=== PATIENT | female | born 1965 | race Hispanic/Latino ===

== ENCOUNTER 2019-11-11 15:29 | Inpatient (IN) | payer OTHER ==
[~2019-11-11] VITALS: Ht 149.9 cm; Wt 65.8 kg
[~2019-11-11 15:29] MED LIST: MECLIZINE HCL12.5 MG PO; MONTELUKAST SOD10 MG PO; PROAIR HFA INH8.5 GM INH; QVAR7.3 G1 INH
--- OUTSIDE RECORDS SUMMARY | 2019-11-11 15:32 | XMS REPORT ---
Author Author [facility] Organization [facility] Address [address] [place] [address] Phone Unavailable Care Team Providers Care Cell Plasterer Name Role Phone Unavailable Unavailable Payers Payer Name Policy Type Policy Number Effective Date Expiration Date S ource Problems This patient has no known problems. Allergies, Adverse Reactions, Alerts Allergy Name Allergy Type Status Severity Reaction(s) Onset Date Inacti ve Date Treating Clinician Comments Source amoxicillin DA Active SV 2017-04-09 00:00:00 [facility] FLU SHOT DA Active SV 2017-04-09 00:00:00 [facility] Medications This patient has no known medications. Procedures This patient has no known procedures. Results Test Description Test Time Test Comments Results Result Comments Source - XR WRIST 3 + V RT 2019-10-28 14:42:00 FAX: Maritza Evangelista [phone] [place]: St: [facility] FAX: Emily Vasques DENTAL HYGIENIST Name: CRYSTAL LUKE [employer] : 1965 Age/S: 54/F [address] Unit #: [id number] Loc: [place] [address] Phys: Emily Vasques DENTAL HYGIENIST Acct: [id number] Dis Date: Status: REG ER PHONE #: [phone] Exam Date: 10/28/2019 1410 FAX #: [phone] Reason: PAIN/SWELLING AFTER FALL EXAMS: CPT CODE: [id number] XR WRIST 3 + V RT [id number] EXAM: Right wrist, 3 views; INFORMATION: Painful swelling after fall; FINDINGS: The lateral view shows a bone fragment or an abnormal calcification along the dorsal aspect of the distal portion of the right radius. The AP and oblique views show no obvious fracture. No radiopaque foreign bodies. IMPRESSION: Possible fracture involving the dorsal aspect of the distal right radius, seen on the lateral view only. Alternatively, this could represent a soft tissue calcification. Recommend clinical correlation and consideration for a CT scan of the wrist, if indicated. Location code: GW at 1442 Reported and signed by: Philip Yuan M.D. CC: Maritza Diaz MD; Emily Vasques NP Technologist: DAVID SURESH(R) Trnscrd Date/Time/By: 10/28/2019 (4177) : By: ChepeGRW Orig Print D/T: S: 10/28/2019 (7299) PAGE 1 Signed Report
[2019-11-11] MEDS ORDERED: SODIUM CHLORIDE 0.9% 1000ML 1,000 ML IV STA (15:34)
--- NOTE | 2019-11-11 15:55 | Emergency Department Note ---
History of Present Illnes History of Present Illness Chief Complaint: COVID PUI History of Present Illness This is a 54 year old female . c/o chills cough x 10 days - 6 days ago developed diarrhea lasted 5 days - developed sob chest wall pain several days worse today Onset (how long ago): day(s) (10days) Location: chest Quality: mod Radiation: non-radiation, back, neck, extremity, abdomen, periumbilical, flank, proximal, distal, other Severity: moderate Onset quality: gradual Duration (how long): day(s) (10days) Timing of current episode: constant Progression: worsening Context: recent illness (chills cough x 1 dyas) Relieving factors: none Exacerbating factors: none Treatments prior to arrival: none (KB PRIEST NP) Past Medical/Family History Physician Review I have reviewed the patient's past medical and family history. Any updates have been documented here. (KB PRIEST NP) Social History Smoking Cessation: Former smoker Alcohol Use: None Any Illegal Drug Use: No TB Exposure/Symptoms: No Physically hurt or threatened: No (KB PRIEST NP) Family History Family history of heart diseas: No (KB PRIEST NP) Other Last Tetanus: Unknown Any Pre-Existing Lines (PICC,: No (KB PRIEST NP) Review of Systems Review of Systems Constitutional: chills, fever EENTM: no symptoms Cardiovascular: no symptoms Respiratory: cough, pain with cough, dyspnea, dyspnea on exertion Gastrointestinal: no symptoms Genitourinary: no symptoms Musculoskeletal: no symptoms Neurological: no symptoms Psychological: no symptoms Endocrine: no symptoms Hematological/Lymphatic: no symptoms Review of other systems All other systems reviewed and negative. (KB PRIEST NP) Physical Exam Related Data Allergies: Coded Allergies: amoxicillin (Verified Allergy, Intermediate, Vomiting, Dizziness, Stomach Pain, 06/20/15) Physical Exam CONSTITUTIONAL Constitutional: ill appearing HENT HENT: normocephalic, atraumatic, oropharynx clear/moist, nose normal, erythema (mnimal ) HENT L/R: left ext ear normal, right ext ear normal EYES Eyes: PERRL, conjunctivae normal NECK Neck: ROM normal PULMONARY Pulmonary: respiratory distress, chest tenderness, other (tachypnea grunting ); breath sounds normal (lower lung fileds diminished) CARDIOVASCULAR Cardiovascular: regular rhythm, heart sounds normal, capillary refill normal, tachycardia GASTROINTESTINAL Abdominal: soft, nontender, bowel sounds normal GENITOURINARY Genitourinary: exam deferred SKIN Skin: warm, dry MUSCULOSKELETAL Musculoskeletal: ROM normal NEUROLOGICAL Neurological: alert, oriented x 3, no gross motor or sensory deficits PSYCHOLOGICAL Psychological: mood/affect normal, judgement normal (KB PRIEST NP) Results Laboratory Laboratory Laboratory Tests Test 11/11/19 15:40 White Blood Count 9.37 x10e3/uL (4.8-10.8) Red Blood Count 5.19 x10e6/uL (3.6-5.1) Hemoglobin 15.2 g/dL (12.0-16.0) Hematocrit 44.0 % (34.2-44.1) Mean Corpuscular Volume 84.8 fL (81-99) Mean Corpuscular Hemoglobin 29.3 pg (28-32) Mean Corpuscular Hemoglobin Concent 34.5 g/dL (31-35) Red Cell Distribution Width 12.0 % (11.7-14.4) Platelet Count 304 x10e3/uL (140-360) Neutrophils (%) (Auto) 74.1 % (38.7-80.0) Lymphocytes (%) (Auto) 18.9 % (18.0-39.1) Monocytes (%) (Auto) 6.2 % (4.4-11.3) Eosinophils (%) (Auto) 0.1 % (0.0-6.0) Basophils (%) (Auto) 0.2 % (0.0-1.0) Neutrophils # (Auto) 6.9 (2.1-6.9) Lymphocytes # (Auto) 1.8 (1.0-3.2) Monocytes # (Auto) 0.6 (0.2-0.8) Eosinophils # (Auto) 0.0 (0.0-0.4) Basophils # (Auto) 0.0 (0.0-0.1) Absolute Immature Granulocyte (auto 0.05 x10e3/uL (0-0.1) Prothrombin Time 13.0 seconds (11.9-14.5) Prothromb Time International Ratio 0.93 Activated Partial Thromboplast Time 30.1 seconds (23.8-35.5) Sodium Level 135 mmol/L (136-145) Potassium Level 3.1 mmol/L (3.5-5.1) Chloride Level 94 mmol/L (98-107) Carbon Dioxide Level 20 mmol/L (22-29) Anion Gap 24.1 mmol/L (8-16) Blood Urea Nitrogen 9 mg/dL (7-26) Creatinine 0.66 mg/dL (0.57-1.11) Estimat Glomerular Filtration Rate > 60 ML/MIN (60-) BUN/Creatinine Ratio 14 (6-25) Glucose Level 91 mg/dL (74-118) Lactic Acid Level 2.7 mmol/L (0.5-2.0) Calcium Level 9.7 mg/dL (8.4-10.2) Total Bilirubin 0.8 mg/dL (0.2-1.2) Aspartate Amino Transf (AST/SGOT) 46 IU/L (5-34) Alanine Aminotransferase (ALT/SGPT) 42 IU/L (0-55) Alkaline Phosphatase 69 IU/L (40-150) Creatine Kinase 84 IU/L (29-168) Creatine Kinase MB 1.00 ng/mL (0-5.0) Troponin I 0.006 ng/mL (0-0.300) B-Type Natriuretic Peptide < 10.0 pg/mL (0-100) Total Protein 8.2 g/dL (6.5-8.1) Albumin 3.5 g/dL (3.5-5.0) Globulin 4.7 g/dL (2.3-3.5) Albumin/Globulin Ratio 0.7 (0.8-2.0) Thyroid Stimulating Hormone (TSH) 2.029 uIU/mL (0.350-4.940) Lab results reviewed: Yes (KB PRIEST FRONT OFFICE HELP) Critical Care Time Subsequent provider I assumed direction of critical care for this patient from another provider of my specialty. (KB PRIEST FRONT OFFICE HELP) Assessment & Plan Reassessment Reassessment time: 15:50 Reassessment chart scribed for Dr Santana 54y f presented to ed c/o chills cough fever x 10 days - 6 days ago developed diarrhea lasted 5 days - developed sob chest wall pain several days worse today - Dr Santana in eval pt status - pt c/o cwp tachypneic grunting w/ pain sts hurts to breath - lab cxr blood culture lactic ordered pt medicated w/ ns bolus zofran morphine azithromax rocephin tylenol suspect sepsis - blood cultures lactic ordered & azithromax / rocephin 1545 source resp meet sirs criteria - vs- temp 101 hr 124 1540 severs sepsis -1st lactic -2.7 (KB PRIEST FRONT OFFICE HELP) Assessment & Plan Assessment & Plan Dr Santana spoke w/ pt and explained plan of care to admit Dr Santana spoke w/ Dr Real will admit (KB PRIEST FRONT OFFICE HELP) Final Impression: (1) ACUTE RESPIRATORY DISTRESS (2) VIRAL PNEUMONIA, UNSPECIFIED (3) Pneumonia (VANESSA SANTANA MD) Depart Disposition: ADMITTED Home Meds Reported Medications Albuterol Sulf* (PROAIR HFA INHALER*) 8.5 Gm Inh, 8.5 G INH 06/20/15 Beclomethasone Dipropionate (QVAR) 7.3 Gm Aer.w.adap, 80 MCG INH 06/20/15 Meclizine Hcl (MECLIZINE HCL) 12.5 Mg Tablet, 25 MG PO DAILY, TAB 06/20/15 Montelukast Sodium (MONTELUKAST SODIUM) 10 Mg Tablet, 10 MG PO DAILY, #30 TAB 06/20/15 Medications in the ED Sodium Chloride 1,000 ml @ 0 mls/hr Q0M STAT IV ; Start 11/11/19 at 15:34; Stop 11/11/19 at 15:37; Status DC Ceftriaxone Sodium 50 ml @ 50 mls/hr ONCE STAT IV ; Start 11/11/19 at 15:34; Stop 11/11/19 at 16:33; Status UNV Azithromycin 250 ml @ 125 mls/hr ONCE STAT IV ; Start 11/11/19 at 15:34; Stop 11/11/19 at 17:33; Status UNV (KB PRIEST NP) Physician Attestation Provider Attestation The patient's history, exam findings, diagnostics, and a summary of any interventions or procedures was reviewed in detail with our ABHIJIT. I personally interviewed and examined the patient, and I have reviewed and agree with the HPI andexam. 10 DAYS OF F/C, COUGH, ACHING, then 6 days ago had diarrhea lasting 4 days, SOB started last night worse today. My personal exam shows O2 sat 91% on RA with mild resp distress, L- decr BS's with scattered basilar rhonchi. I confirm the diagnosis as documented by the ABHIJIT. I have reviewed and agree with the care plan articulated in the disposition section. (VANESSA SANTANA MD) KB PRIEST NP November 11, 2019 15:55 VANESSA SANTANA MD November 11, 2019 18:05
[2019-11-11] MEDS ORDERED: CEFTRIAXONE SOD 1 GM/NS 50 ML 50 ML IV ONE (16:00)
[2019-11-11] MEDS ORDERED: ONDANSETRON HCL INJ 2MG/ML 2ML 2 MG/ML VIAL IV NR (16:00)
[2019-11-11 16:09] LABS: BASOPHILS % 0.2 % (0.0-1.0); EOSINOPHILS % 0.1 % (0.0-6.0); HEMOGLOBIN 15.2 g/dL (12.0-16.0); LYMPHOCYTES # (AUTO) 1.8 (1.0-3.2); LYMPHOCYTES % 18.9 % (18.0-39.1); MEAN CORPUSCULAR HEMOGLOBIN 29.3 pg (28-32); MEAN CORPUSCULAR HGB CONC 34.5 g/dL (31-35); MEAN CORPUSCULAR VOLUME 84.8 fL (81-99); MONOCYTES # (AUTO) 0.6 (0.2-0.8); MONOCYTES % 6.2 % (4.4-11.3); NEUTROPHILS # (AUTO) 6.9 (2.1-6.9); NEUTROPHILS % 74.1 % (38.7-80.0); PLATELET COUNT 304 x10e3/uL (140-360); RED BLOOD COUNT 5.19 x10e6/uL (3.6-5.1)
[2019-11-11 16:22] LABS: INR 0.93
[2019-11-11 16:23] LABS: PARTIAL THROMBOPLASTIN TIME 30.1 seconds (23.8-35.5)
[2019-11-11] MEDS ORDERED: SODIUM CHLORIDE 0.9% 1000ML 1,000 ML IV SCH (16:30)
[2019-11-11] MEDS ORDERED: MORPHINE SULFATE 2 MG/ML SYR 1ML IV ONE (16:30)
--- NOTE | 2019-11-11 16:31 | NUR ---
panda here to see pt
[2019-11-11 16:32] LABS: ALANINE AMINOTRANSFERASE 42 IU/L (0-55); ALBUMIN 3.5 g/dL (3.5-5.0); ALBUMIN/GLOBULIN RATIO 0.7 (0.8-2.0); ALKALINE PHOSPHATASE 69 IU/L (40-150); ANION GAP 24.1 mmol/L (8-16); BLOOD UREA NITROGEN 9 mg/dL (7-26); BUN/CREATININE RATIO 14 (6-25); CALCIUM 9.7 mg/dL (8.4-10.2); CARBON DIOXIDE 20 mmol/L (22-29); CHLORIDE 94 mmol/L (98-107); CREATINE KINASE 84 IU/L (29-168); CREATININE, SERUM 0.66 mg/dL (0.57-1.11); EST GLOMERULAR FILTRATION RATE > 60 ML/MIN (60-); GLUCOSE 91 mg/dL (74-118); POTASSIUM 3.1 mmol/L (3.5-5.1); SODIUM 135 mmol/L (136-145)
[2019-11-11] MEDS ORDERED: ACETAMINOPHEN 325 MG TAB PO ONE (16:45)
[2019-11-11] MEDS ORDERED: CEFTRIAXONE SOD 1 GM VIAL ONE (16:46)
[2019-11-11 16:51] LABS: THYROID STIMULATING HORMONE 2.029 uIU/mL (0.350-4.940)
--- NOTE | 2019-11-11 16:54 | NUR ---
covid swab sent and meds given.
[2019-11-11] MEDS ORDERED: AZITHROMYCIN 500MG/NS 250 ML 250 ML IV ONE (17:00)
[2019-11-11] MEDS ORDERED: ALBUTEROL SULFATE HFA 8GM INHALATION AEROSOL INH PRN (17:00)
[2019-11-11 17:08] LABS: B-TYPE NATRIURETIC PEPTIDE2 < 10.0 pg/mL (0-100)
[2019-11-11] MEDS ORDERED: HYDROMORPHONE 1MG/1ML INJ IV STA (17:27)
[2019-11-11] MEDS ORDERED: LEVOFLOXACIN 500MG/D5W 100ML 100 ML IV SCH (17:30)
[2019-11-11 17:54] LABS: CLARITY,URINE SL CLOUDY (CLEAR); COLOR,URINE YELLOW (YELLOW); LEUKOCYTE ESTERASE ,URINE NEGATIVE (NEGATIVE); NITRITE,URINE NEGATIVE (NEGATIVE); PROTEIN,URINE DIPSTICK 2+ (NEGATIVE)
[2019-11-11 17:55] LABS: BILIRUBIN,URINE SMALL (NEGATIVE); KETONES,URINE >=160 (NEGATIVE); URINE UROBILINOGEN 0.2 mg/dL (0.2 - 1)
[2019-11-11] MEDS ORDERED: HYDROMORPHONE 1MG/1ML INJ IV NR (18:00)
[2019-11-11 18:10] LABS: BACTERIA,URINE RARE /HPF; EPITHELIAL CELLS,URINE FEW /LPF
--- OUTSIDE RECORDS SUMMARY | 2019-11-11 18:21 | XMS REPORT ---
Author Author [facility] Organization [facility] Address [address] [place] [address] Phone Unavailable Care Team Providers Care Loop Tacker Name Role Phone Unavailable Unavailable Payers Payer Name Policy Type Policy Number Effective Date Expiration Date S ource Problems This patient has no known problems. Allergies, Adverse Reactions, Alerts Allergy Name Allergy Type Status Severity Reaction(s) Onset Date Inacti ve Date Treating Clinician Comments Source amoxicillin DA Active SV 2017-04-09 00:00:00 [facility] FLU SHOT DA Active SV 2017-04-09 00:00:00 [facility] Medications This patient has no known medications. Procedures This patient has no known procedures. Results Test Description Test Time Test Comments Results Result Comments Source - XR WRIST 3 + V RT 2019-10-28 14:42:00 FAX: Maritza Evangelista [phone] [place]: St: [facility] FAX: Emily Vasquse [address] MAN Name: CRYSTAL LUKE [facility] : 1965 Age/S: 54/F [address] Unit #: [id number] Loc: [place] [address] Phys: Emily Vasques [address] Acct: [id number] Dis Date: Status: REG ER PHONE #: [phone] Exam Date: 10/28/2019 1410 FAX #: [phone] Reason: PAIN/SWELLING AFTER FALL EXAMS: CPT CODE: [id number] XR WRIST 3 + V RT [id number] EXAM: Right wrist, 3 views; INFORMATION: Painful [...] NP Technologist: DAVID SURESH(R) Trnscrd Date/Time/By: 10/28/2019 (2511) : By: ChepeGRW Orig Print D/T: S: 10/28/2019 (9393) PAGE 1 Signed Report
--- NOTE | 2019-11-11 18:25 | Diagnostic Imaging Report ---
EXAMINATION: CHEST SINGLE (PORTABLE) INDICATION: Shortness of breath. COMPARISON: None FINDINGS: TUBES and LINES: None. LUNGS: Lungs are well inflated. There are patchy consolidative opacities in the lower lung zones bilaterally. Mild interstitial opacities. PLEURA: No pleural effusion or pneumothorax. HEART AND MEDIASTINUM: The cardiomediastinal silhouette is unremarkable. BONES AND SOFT TISSUES: No acute osseous lesion. Soft tissues are unremarkable. UPPER ABDOMEN: No free air under the diaphragm. IMPRESSION: Bilateral interstitial and lower lung zone airspace opacities may represent multifocal pneumonia (including atypical pneumonia), possibly with superimposed pulmonary edema. Recommend follow-up chest radiograph to assess for resolution in 6-8 weeks. Signed by: Dr. Brown Li MD on 11/11/2019 6:22 PM
[2019-11-11] MEDS: ALBUTEROL SULFATE HFA 8GM INHALATION AEROSOL INH PRN (18:46)
[2019-11-11] MEDS: LORAZEPAM 0.5 MG TAB PO PRN (18:48)
--- NOTE | 2019-11-11 19:25 | NUR ---
2ND LATIC DRAWN PER ORDER.
[2019-11-11] MEDS ORDERED: POTASSIUM CHLORIDE 20 MEQ TAB CR PO NR (19:30)
--- NOTE | 2019-11-11 19:31 | Consultation ---
DATE OF CONSULTATION: Pulmonary Critical Care Consultation CHIEF COMPLAINT: Fevers and cough. HISTORY OF PRESENT ILLNESS: The patient is a 54-year-old woman. She has a history of some asthma and uses an albuterol inhaler intermittently. She reports fever and cough for the last 10 days. Her cough has been productive of some discolored phlegm. She reports body aches as well. She denies any nausea or vomiting. PAST SURGICAL HISTORY: Status post appendectomy. PAST MEDICAL HISTORY: 1. History of asthma. 2. No prior cardiac history. SOCIAL HISTORY: The patient quit smoking 15 years ago. She is not an active drinker. ALLERGIES: THE PATIENT IS ALLERGIC TO AMOXICILLIN. REVIEW OF SYSTEMS: The patient is afebrile now, but had a fever at home. She does not complain of headache. She has no neck pain. She is not having any chest pain. She does have cough and phlegm production. She has some dyspnea. She does not complain of wheezing. She has no abdominal pain. She has no nausea or vomiting. She has no leg edema. PHYSICAL EXAMINATION: VITAL SIGNS: The patient is afebrile. The blood pressure is 101/66 and saturation is 99% on a non-rebreather. Her pulse is 104 and respiratory rate is elevated to 34. HEENT: Shows no facial swelling or erythema. LYMPHATIC: Shows no submandibular, cervical, or supraclavicular adenopathy. CARDIAC: Reveals regular rate and rhythm with normal S1 and S2. LUNGS: Auscultation of lungs reveals clear breath sounds bilaterally. There is no wheezing. ABDOMEN: Soft and nontender. There is no rebound or guarding. EXTREMITIES: Shows no leg edema or calf tenderness. There is no cyanosis or clubbing. SKIN: Shows no rashes. NEUROLOGICAL: Shows no focal abnormalities. LABORATORY DATA: The BUN to creatinine ratio is 9 to 0.66 and the potassium is 3.1. The lactic acid is 2.7. Albumin is 3.4. White blood cell count is 9.3 and the hemoglobin is 15.2. The platelet count is 304. IMPRESSION: 1. Community-acquired pneumonia with sepsis, present on admission. 2. Possible COVID-19 infection. 3. Asthma. 4. Anion gap metabolic acidosis. PLAN: 1. The patient will receive IV fluids. 2. Panculture. 3. Antibiotics for community-acquired pneumonia. 4. Urinalysis. 5. Monitor lactic acid. 6. Await COVID-19 testing. 7. Bronchodilators. MD ILIR Mari/GENEVA /[id number]
--- NOTE | 2019-11-11 19:54 | NUR ---
GREEN SEPSIS SHEET ON CHART PER PROTOCOL
[2019-11-11] MEDS: MORPHINE SULFATE 2 MG/ML SYR 1ML IV PRN (23:05)
[2019-11-12] VITALS (11 sets, daily range): BP systolic 97–118; BP diastolic 63–75
[2019-11-12 00:23] LABS: BASOPHILS % 0.2 % (0.0-1.0); EOSINOPHILS % 0.2 % (0.0-6.0); HEMATOCRIT 34.1 % (34.2-44.1); HEMOGLOBIN 11.7 g/dL (12.0-16.0); LYMPHOCYTES # (AUTO) 1.1 (1.0-3.2); LYMPHOCYTES % 16.9 % (18.0-39.1); MEAN CORPUSCULAR HEMOGLOBIN 29.4 pg (28-32); MEAN CORPUSCULAR HGB CONC 34.3 g/dL (31-35); MEAN CORPUSCULAR VOLUME 85.7 fL (81-99); MONOCYTES # (AUTO) 0.5 (0.2-0.8); MONOCYTES % 6.8 % (4.4-11.3); NEUTROPHILS % 75.6 % (38.7-80.0); PLATELET COUNT 226 x10e3/uL (140-360); RED BLOOD COUNT 3.98 x10e6/uL (3.6-5.1); RED CELL DISTRIBUTION WIDTH 12.1 % (11.7-14.4)
[2019-11-12 00:44] LABS: ALANINE AMINOTRANSFERASE 31 IU/L (0-55); ALBUMIN 2.7 g/dL (3.5-5.0); ALBUMIN/GLOBULIN RATIO 0.8 (0.8-2.0); ALKALINE PHOSPHATASE 50 IU/L (40-150); ANION GAP 14.2 mmol/L (8-16); BLOOD UREA NITROGEN 8 mg/dL (7-26); BUN/CREATININE RATIO 15 (6-25); CALCIUM 8.2 mg/dL (8.4-10.2); CARBON DIOXIDE 23 mmol/L (22-29); CHLORIDE 102 mmol/L (98-107); CREATININE, SERUM 0.54 mg/dL (0.57-1.11); EST GLOMERULAR FILTRATION RATE > 60 ML/MIN (60-); GLUCOSE 85 mg/dL (74-118); POTASSIUM 3.2 mmol/L (3.5-5.1); SODIUM 136 mmol/L (136-145)
[2019-11-12 01:10] LABS: CREATINE KINASE 69 IU/L (29-168)
[2019-11-12] MEDS: MORPHINE SULFATE 2 MG/ML SYR 1ML IV PRN (05:21)
[2019-11-12 06:50] LABS: ANION GAP 14.3 mmol/L (8-16); BLOOD UREA NITROGEN 7 mg/dL (7-26); BUN/CREATININE RATIO 13 (6-25); CALCIUM 8.3 mg/dL (8.4-10.2); CARBON DIOXIDE 23 mmol/L (22-29); CHLORIDE 103 mmol/L (98-107); CREATININE, SERUM 0.54 mg/dL (0.57-1.11); EST GLOMERULAR FILTRATION RATE > 60 ML/MIN (60-); GLUCOSE 75 mg/dL (74-118); POTASSIUM 3.3 mmol/L (3.5-5.1); SODIUM 137 mmol/L (136-145)
[2019-11-12 07:06] LABS: CREATINE KINASE 74 IU/L (29-168)
--- NOTE | 2019-11-12 07:13 | NUR ---
PT PLACED IN PRONE POSITION PER ER MD ORDERS.
[2019-11-12] MEDS ORDERED: POTASSIUM CHLORIDE 20 MEQ TAB CR PO NR (09:00)
[2019-11-12] MEDS ORDERED: CEFTRIAXONE SOD 1 GM VIAL ONE (09:09)
[2019-11-12] MEDS: MONTELUKAST SODIUM 10 MG TAB PO SCH (09:22)
[2019-11-12] MEDS: AZITHROMYCIN 500MG/SOD CHL 0.9% 250ML BAG IV SCH (09:22)
[2019-11-12] MEDS: CEFTRIAXONE SOD 1 GRAM/0.9% SOD CHL 50ML BAG IV SCH (09:22)
[2019-11-12] MEDS: ALBUTEROL SULFATE HFA 8GM INHALATION AEROSOL INH PRN (09:23)
--- NOTE | 2019-11-12 10:02 | Progress Note ---
DATE: SUBJECTIVE: The patient received very low dose of Dilaudid during the night. She appears more comfortable. She is still on a non-rebreather. She is in the prone position. PHYSICAL EXAMINATION: VITAL SIGNS: Vital signs are stable. The blood pressure is 105/54 and the saturation is 100%. Pulse is 86. Respiratory rate is 22. HEENT: No facial swelling or erythema. CARDIAC: Regular rate and rhythm with normal S1, S2. There are no murmurs or rubs. LUNGS: Auscultation of the lungs reveals clear breath sounds bilaterally. There is no wheezing. ABDOMEN: Soft, nontender. There is no rebound or guarding. EXTREMITIES: No leg edema or calf tenderness. There is no cyanosis or clubbing. SKIN: No rashes. NEUROLOGICAL: No focal abnormalities. IMPRESSION: 1. Viral pneumonia and COVID-19 infection. 2. Hypokalemia. 3. Asthma. PLAN: 1. Continue oxygen. 2. Antipyretics. 3. Continue antibiotics. 4. Consider Remdesivir. 5. Replace potassium. Davonte Cardenas MD [facility]/SHYANNL /[id number]
[2019-11-12] MEDS: LORAZEPAM 0.5 MG TAB PO PRN (10:40)
[2019-11-12] MEDS: GUAIFENESIN/CODEINE 10 ML CUP PO PRN (10:40)
[2019-11-12] MEDS ORDERED: DEXMEDETOMIDINE HCL 200 MCG in SODIUM CHLORIDE 0.9% 50ML 48 ML IV PRN (14:15)
--- NOTE | 2019-11-12 14:24 | NUR ---
DR CLARK HERE TO SEE PT
[2019-11-12] MEDS ORDERED: DEXMEDETOMIDINE 200MCG/NS 50ML 50 ML IV PRN (15:00)
[2019-11-12] MEDS: ASCORBIC ACID 500 MG TAB PO SCH (16:43)
[2019-11-12] MEDS: ZINC SULFATE 50 MG CAP PO SCH (16:43)
--- NOTE | 2019-11-12 18:23 | NUR ---
Pt arrived to ICU at 1500 on nonrebreather. Pt tachypneic upon exertion. Precedex drip held at this time. Dr. Moreno rounded on pt and discussed convalescent frozen plasma transfusion. Pt agreeable to transfusion. Verbal consents signed and placed in chart. project scheduler notified munitions worker of the situation. Dr. Moreno gave orders for Lovenox, vitamin c and zinc. Type and screen's sent to lab. Will continue to monitor the patient.
--- NOTE | 2019-11-12 20:19 | Consultation ---
DATE OF CONSULTATION: REASON FOR CONSULTATION: The patient has pneumonia, COVID-19. HISTORY OF PRESENT ILLNESS: This patient, who is a 54-year-old female. She has been sick for 2 weeks. She does have underlying history of asthma. She said for the last 2 weeks she has been having fever, cough, productive cough recently. It was not productive in the beginning. The patient who has history of asthma, history of appendectomy, and appendicitis. She used to smoke, but quit 15 years ago. No drug abuse or alcohol abuse. The patient was admitted. She was found to be hypoxemic. She is currently in the intensive care unit on FiO2 of 100%, but since she came here, she seems to be slightly better. PAST MEDICAL HISTORY: Asthma. PAST SURGICAL HISTORY: Appendectomy. ALLERGIES: AMOXICILLIN, BUT SHE DID WELL WITH CEPHALOSPORIN. SOCIAL HISTORY: There is no smoking, drug abuse, or alcohol abuse currently. FAMILY HISTORY: Otherwise hypertension. REVIEW OF SYSTEMS: At present time, besides the shortness of breath and cough, she denies any. HEENT: Negative. PULMONARY: Negative. CARDIAC: Negative. : Negative. SKIN: There is no rash. JOINT: Negative. LABORATORY DATA: White count 6.57, hemoglobin 11, and hematocrit 34. Her PCR was positive. Her sodium 136, potassium 3.2 with creatinine 0.54. She had a chest x-ray, which was done and there was bilateral interstitial lower lobe airspace opacities. PHYSICAL EXAMINATION: GENERAL: She is currently alert and oriented, does not seem to be in acute distress. VITAL SIGNS: Stable, currently afebrile, heart rate of 93, respirations of 22, and blood pressure 106/60. HEENT: Normocephalic. NECK: Supple. CHEST: Crackles bilateral. COR: S1-S2. No murmur. ABDOMEN: Soft. Bowel sounds present. EXTREMITIES: No edema. SKIN: No rash. IMPRESSION: Coronavirus disease-19, present admission, concerned about superimposed bacterial pneumonia, community acquired pneumonia. The patient has been sick for 2 weeks. She is not a candidate for Remdesivir. However, I discussed with her the convalescent plasma and she agreed to it, so we will proceed with that. In the meantime, we will put the patient on Lovenox 40 mg subcu q.24 hours. We will also agree with Rocephin and azithromycin. History of asthma, the patient is on steroid. Discussed with the patient. Discussed with medical team. We will follow. MD PATRICE Gay/MODSofya /[id number]
[2019-11-12] MEDS: ENOXAPARIN SOD INJ 40 MG/0.4 ML SYR SC SCH (21:12)
--- NOTE | 2019-11-12 22:00 | History and Physical ---
PRIMARY CARE DOCTOR: Dr. Maritza Diaz. CHIEF COMPLAINT: Shortness of breath. HISTORY OF PRESENT ILLNESS: This is a 54-year-old woman, who came in after being sick for about 10 days now with fever and cough. Most recently, the patient started having intractable nausea, vomiting, and also diarrhea as well. The patient has been self-quarantine at home. Her is doing okay so far. However, the patient, yesterday came in with significant shortness of breath and left-sided pleuritic chest pain. The patient stated that about two weeks ago, she went to [facility] because of a fall and had a right wrist injury. PAST MEDICAL AND SURGICAL HISTORY: 1. Asthma. 2. Previous appendectomy. SOCIAL HISTORY: Quit smoking about 15 years ago. FAMILY HISTORY: Diabetes. REVIEW OF SYSTEMS: A 10-point review of system obtained and nothing else is significant other than what is stated in HPI. PHYSICAL EXAMINATION: VITAL SIGNS: Temperature 99.4, pulse 93, respiratory rate 22, blood pressure 106/66. GENERAL: No acute distress. On non-rebreather face mask. SKIN: No rash. HEENT: Anicteric. Oropharynx is clear on decreased breath sounds. HEART: Regular rate rhythm. Normal S1, S2. GI: Abdomen is soft, nondistended. MUSCULOSKELETAL: Painless range of motion in joints. NEUROLOGIC: Alert and oriented x3. Cranial nerves II through XII grossly intact. PSYCHIATRIC: No depression. LABORATORY DATA: Laboratory pichardo, white count 7, hemoglobin 12, platelet count 226. PT, PTT are normal. Potassium 3.3, creatinine 0.5. Troponin are negative x4 and albumin is 2.7. TSH is normal. Chest x-ray shows pneumonia. ASSESSMENT AND PLAN: 1. Acute respiratory distress due to COVID-19 pneumonia with hypoxia. We will continue nonrebreather face mask. The patient is on empiric IV Rocephin and azithromycin. The patient received a fluid already. Her hypokalemia will be reviewed and repleted. ID and Pulmonary are following along. The patient will continue to be getting just 1 mg of IV morphine for pleuritic chest pain, given her systolic blood pressure is 100. 2. Gastrointestinal and deep venous thrombosis prophylaxis. Lovenox. I have updated her primary care doctor about this hospitalization. The patient will be admitted to ICU for close monitoring for possible acute respiratory failure. Yiching MD BRUNILDA Martinez/GENEVA /[id number]
[2019-11-12] MEDS: DEXMEDETOMIDINE 200MCG/NS 50ML 50 ML IV PRN (22:15)
[2019-11-12] MEDS ORDERED: SODIUM CHLORIDE 0.9% 250ML 250 ML ONE (22:21)
[2019-11-12] MEDS ORDERED: DEXMEDETOMIDINE 200MCG/NS 50ML 50 ML IV ONE (22:26)
[2019-11-13] VITALS (25 sets, daily range): BP systolic 96–133; BP diastolic 64–89
[2019-11-13] MEDS: LORAZEPAM 0.5 MG TAB PO PRN (01:14)
[2019-11-13] MEDS: DEXMEDETOMIDINE 200MCG/NS 50ML 50 ML IV PRN ×3 (03:19→17:27)
[2019-11-13 05:31] LABS: BASOPHILS % 0.3 % (0.0-1.0); EOSINOPHILS # (AUTO) 0.1 (0.0-0.4); EOSINOPHILS % 2.2 % (0.0-6.0); HEMATOCRIT 33.3 % (34.2-44.1); HEMOGLOBIN 11.1 g/dL (12.0-16.0); LYMPHOCYTES # (AUTO) 1.2 (1.0-3.2); LYMPHOCYTES % 20.1 % (18.0-39.1); MEAN CORPUSCULAR HEMOGLOBIN 29.8 pg (28-32); MEAN CORPUSCULAR HGB CONC 33.3 g/dL (31-35); MEAN CORPUSCULAR VOLUME 89.5 fL (81-99); MONOCYTES # (AUTO) 0.5 (0.2-0.8); MONOCYTES % 8.3 % (4.4-11.3); NEUTROPHILS # (AUTO) 4.1 (2.1-6.9); NEUTROPHILS % 68.4 % (38.7-80.0); PLATELET COUNT 274 x10e3/uL (140-360); RED BLOOD COUNT 3.72 x10e6/uL (3.6-5.1); RED CELL DISTRIBUTION WIDTH 12.2 % (11.7-14.4)
[2019-11-13 05:38] LABS: ALANINE AMINOTRANSFERASE 27 IU/L (0-55); ALBUMIN 2.8 g/dL (3.5-5.0); ALBUMIN/GLOBULIN RATIO 0.8 (0.8-2.0); ALKALINE PHOSPHATASE 53 IU/L (40-150); ANION GAP 16.1 mmol/L (8-16); BLOOD UREA NITROGEN 5 mg/dL (7-26); BUN/CREATININE RATIO 9 (6-25); CALCIUM 8.8 mg/dL (8.4-10.2); CARBON DIOXIDE 22 mmol/L (22-29); CHLORIDE 101 mmol/L (98-107); CREATININE, SERUM 0.53 mg/dL (0.57-1.11); EST GLOMERULAR FILTRATION RATE > 60 ML/MIN (60-); GLUCOSE 79 mg/dL (74-118); POTASSIUM 3.1 mmol/L (3.5-5.1); SODIUM 136 mmol/L (136-145)
[2019-11-13] MEDS: MONTELUKAST SODIUM 10 MG TAB PO SCH (08:21)
[2019-11-13] MEDS: AZITHROMYCIN 500MG/SOD CHL 0.9% 250ML BAG IV SCH (08:21)
[2019-11-13] MEDS: ASCORBIC ACID 500 MG TAB PO SCH ×2 (08:21→17:16)
[2019-11-13] MEDS: ZINC SULFATE 50 MG CAP PO SCH ×2 (08:21→17:16)
[2019-11-13] MEDS: ENOXAPARIN SOD INJ 40 MG/0.4 ML SYR SC SCH ×2 (08:21→21:00)
[2019-11-13] MEDS ORDERED: POTASSIUM CHLORIDE 20 MEQ TAB CR PO ONE ×2 (08:31→08:45)
[2019-11-13] MEDS: ONDANSETRON HCL INJ 2MG/ML 2ML 2 MG/ML VIAL IV PRN ×2 (08:57→19:44)
--- NOTE | 2019-11-13 09:02 | Progress Note ---
DATE: SUBJECTIVE: The patient remains on venturi mask with 15 L. She has some dyspnea with exertion. She also complains of nausea, but has not had any vomiting. She had a bowel movement yesterday. She has decreased appetite. OBJECTIVE: VITAL SIGNS: The blood pressure is 120/73, saturation is 99%. She is on a mask with 15 L. her pulse is 68. HEENT: Shows no facial swelling or erythema. CARDIAC: Reveals regular rate and rhythm with normal S1 and S2. LUNGS: Auscultation of lungs reveals clear breath sounds bilaterally. There is no wheezing. ABDOMEN: Soft, nontender. There is no rebound or guarding. EXTREMITIES: Show no leg edema or calf tenderness. There is no cyanosis or clubbing. SKIN: Shows no rashes. NEUROLOGICAL: Shows no focal abnormalities. LABORATORY DATA: Potassium is 3.1 and the sodium is 136. The CO2 is 22, and the BUN to creatinine ratio is normal. Albumin is 2.8. White blood cell count is 5.9 and hemoglobin is 11.1. The platelet count is 274. ASSESSMENT: 1. Acute respiratory failure. 2. Viral pneumonia and coronavirus disease -19. 3. Hypokalemia. 4. Hypoalbuminemia. 5. Asthma. PLAN: 1. Continue oxygen. 2. The patient is scheduled to receive convalescent plasma. 3. Continue current antibiotics. 4. Replace potassium. 5. DVT prophylaxis. 6. Continue low-dose Precedex. 7. Case discussed with patient, nursing staff, Respiratory, Infectious Disease, and Internal Medicine. 8. Greater than 35 minutes in direct critical care time. Davonte Cardenas MD [facility]/SHYANNL /[id number]
[2019-11-13] MEDS: CEFTRIAXONE SOD 1 GRAM/0.9% SOD CHL 50ML BAG IV SCH (10:05)
[2019-11-13 11:19] LABS: BAND NEUTROPHILS % (MANUAL) 1 %; EOSINOPHILS % (MANUAL) 2 % (0-7); LYMPHOCYTES % (MANUAL) 23 % (19-48); MONOCYTES % (MANUAL) 7 % (3.4-9.0); NEUTROPHILS % (MANUAL) 67 % (40-74)
[2019-11-13 11:20] LABS: PLATELET ESTIMATE ADEQUATE; PLATELET MORPHOLOGY COMMENT NORMAL; RBC MORPHOLOGY COMMENT NORMAL
--- NOTE | 2019-11-13 12:27 | Progress Note ---
DATE: SUBJECTIVE: Ms. Hernandez is feeling better, status post 2 units of convalescent plasma transfusion. No new complaints. LABORATORY DATA: White count 5.93 and hemoglobin 11. Her sodium 136, potassium 3.1, and creatinine 0.53. The patient remains on Rocephin, vitamin C, zinc, Lovenox, and azithromycin. PHYSICAL EXAMINATION: GENERAL: She is currently alert. VITAL SIGNS: Stable, afebrile. HEENT: She is not icteric. NECK: Supple. CHEST: Few crackles. COR: S1 and S2. No S3, S4, or murmurs. ABDOMEN: Soft. Bowel sounds present. No tenderness. EXTREMITIES: No edema. SKIN: No rash. IMPRESSION: COVID-19, present on admission; community-acquired pneumonia and hypoxemia. Clinically, seems to be getting better. Continue supportive care. Oxygen and antibiotic as ordered. Deep venous thrombosis prophylaxis. We will follow. MD PATRICE Gay/GENEVA /[id number]
--- NOTE | 2019-11-13 18:01 | Diagnostic Imaging Report ---
EXAMINATION: CHEST XRAY LINE PLACEMENT INDICATION: PICC line placement. COMPARISON: 11/11/2019. FINDINGS: TUBES and LINES: Interval placement of a right upper extremity PICC with distal tip projected on the cavoatrial junction. LUNGS: Lungs are well inflated. Redemonstration of multifocal patchy consolidative opacities bilaterally. PLEURA: No pneumothorax. Small left pleural effusion appears increased since prior exam. HEART AND MEDIASTINUM: The cardiomediastinal silhouette is unremarkable. BONES AND SOFT TISSUES: No acute osseous lesion. Soft tissues are unremarkable. UPPER ABDOMEN: No free air under the diaphragm. IMPRESSION: Interval placement of a right upper extremity PICC with distal tip projected on the cavoatrial junction. Redemonstration of multifocal patchy consolidative opacities bilaterally. Interval development of a small left pleural effusion. Signed by: Dr. Joanna Reynolds M.D. on 11/13/2019 5:57 PM
--- NOTE | 2019-11-13 20:13 | NUR ---
RIGHT UPPER ARM PICC LOCATION CONFIRMED BY X-RAY - OK TO USE PER DR Sofya JOLLEY
[2019-11-13] MEDS: D5.45%NS/KCL 20MEQ 1,000 ML IV SCH (22:30)
[2019-11-14] VITALS (24 sets, daily range): BP systolic 88–115; BP diastolic 46–79
[2019-11-14 05:24] LABS: BASOPHILS % 0.2 % (0.0-1.0); EOSINOPHILS # (AUTO) 0.2 (0.0-0.4); EOSINOPHILS % 2.3 % (0.0-6.0); HEMOGLOBIN 11.6 g/dL (12.0-16.0); LYMPHOCYTES # (AUTO) 1.1 (1.0-3.2); LYMPHOCYTES % 16.4 % (18.0-39.1); MEAN CORPUSCULAR HEMOGLOBIN 30.4 pg (28-32); MEAN CORPUSCULAR HGB CONC 34.1 g/dL (31-35); MONOCYTES # (AUTO) 0.6 (0.2-0.8); MONOCYTES % 8.4 % (4.4-11.3); NEUTROPHILS # (AUTO) 4.8 (2.1-6.9); NEUTROPHILS % 72.1 % (38.7-80.0); PLATELET COUNT 310 x10e3/uL (140-360); RED BLOOD COUNT 3.82 x10e6/uL (3.6-5.1); RED CELL DISTRIBUTION WIDTH 12.1 % (11.7-14.4)
[2019-11-14 05:38] LABS: ALANINE AMINOTRANSFERASE 22 IU/L (0-55); ALBUMIN 2.6 g/dL (3.5-5.0); ALBUMIN/GLOBULIN RATIO 0.7 (0.8-2.0); ALKALINE PHOSPHATASE 60 IU/L (40-150); ANION GAP 13.4 mmol/L (8-16); BLOOD UREA NITROGEN 7 mg/dL (7-26); BUN/CREATININE RATIO 13 (6-25); CALCIUM 8.5 mg/dL (8.4-10.2); CARBON DIOXIDE 24 mmol/L (22-29); CHLORIDE 103 mmol/L (98-107); CREATININE, SERUM 0.52 mg/dL (0.57-1.11); EST GLOMERULAR FILTRATION RATE > 60 ML/MIN (60-); GLUCOSE 120 mg/dL (74-118); POTASSIUM 3.4 mmol/L (3.5-5.1); SODIUM 137 mmol/L (136-145)
--- NOTE | 2019-11-14 06:22 | Diagnostic Imaging Report ---
EXAMINATION: CHEST SINGLE (PORTABLE) COMPARISON: Chest x-ray/06/2019 INDICATION: ^viral pneumonia DISCUSSION: Frontal view of the chest obtained at 0604 hours. HEART AND MEDIASTINUM: The cardiomediastinal silhouette is unremarkable. LINES: None. LUNGS/PLEURA: Patchy airspace opacities throughout the right lung are similar. Peripheral airspace opacities in the left lung are redemonstrated but improved in the upper lobe. There is blunting of the left lateral costophrenic angle. Right lateral costophrenic angle is sharp. No pneumothorax. BONES AND SOFT TISSUES: No focal osseous lesion. The soft tissues are normal. IMPRESSION: Improved infiltrates in the left upper lobe. Other infiltrates in the left lower lobe and right lung are similar. Stable small left pleural effusion. Signed by: Dr. Kitty Ferris MD on 11/14/2019 6:18 AM
[2019-11-14] MEDS: D5.45%NS/KCL 20MEQ 1,000 ML IV SCH (08:51)
[2019-11-14] MEDS: ASCORBIC ACID 500 MG TAB PO SCH ×2 (08:52→17:43)
[2019-11-14] MEDS: CEFTRIAXONE SOD 1 GRAM/0.9% SOD CHL 50ML BAG IV SCH (08:52)
[2019-11-14] MEDS: AZITHROMYCIN 500MG/SOD CHL 0.9% 250ML BAG IV SCH (08:52)
[2019-11-14] MEDS: MONTELUKAST SODIUM 10 MG TAB PO SCH (08:52)
[2019-11-14] MEDS: ZINC SULFATE 50 MG CAP PO SCH ×2 (08:52→17:43)
[2019-11-14] MEDS: ENOXAPARIN SOD INJ 40 MG/0.4 ML SYR SC SCH ×2 (08:52→20:01)
[2019-11-14] MEDS: ONDANSETRON HCL INJ 2MG/ML 2ML 2 MG/ML VIAL IV PRN ×2 (08:57→21:23)
[2019-11-14] MEDS ORDERED: FUROSEMIDE INJ 10 MG/ML 4 ML VIAL IV ONE (09:30)
[2019-11-14] MEDS: DEXMEDETOMIDINE 200MCG/NS 50ML 50 ML IV PRN (10:02)
[2019-11-14 11:21] LABS: PLATELET ESTIMATE ADEQUATE; PLATELET MORPHOLOGY COMMENT NORMAL; RBC MORPHOLOGY COMMENT NORMAL
--- NOTE | 2019-11-14 11:57 | NUR ---
progress note [id number]
[2019-11-14] MEDS: RISPERIDONE 0.5 MG TAB PO PRN (15:13)
--- NOTE | 2019-11-14 16:00 | Progress Note ---
DATE: SUBJECTIVE: The patient remains on 40% oxygen. She has some agitation and has required Precedex intermittently. She is not eating well. Her diarrhea stopped. PHYSICAL EXAMINATION: VITAL SIGNS: The patient is afebrile. The blood pressure is 106/68 and the saturation is 98% on Venturi mask. HEENT: Shows no facial swelling or erythema. CARDIAC: Reveals regular rate and rhythm with normal S1 and S2. LUNGS: Auscultation of lungs reveals clear breath sounds bilaterally. There is no wheezing. ABDOMEN: Soft and nontender. There is no rebound or guarding. EXTREMITIES: Shows no leg edema or calf tenderness. There is no cyanosis or clubbing. SKIN: Shows no rashes. NEUROLOGICAL: Shows no focal abnormalities. LABORATORY DATA: White blood cell count is 6.6 and the hemoglobin is 11.6. The platelet count is 310. The BUN to creatinine ratio is 7 to 0.52 and potassium is 3.4. The albumin is 2.6. IMPRESSION: 1. Acute respiratory failure. 2. Viral pneumonia and COVID-19 infection. 3. Asthma. 4. Hypoalbuminemia. PLAN: 1. Wean oxygen. 2. Stop Precedex and use risperidone p.r.n. 3. Continue current antibiotics. 4. Repeat chest x-ray and labs tomorrow. 5. If the patient's nutritional status remains poor, consider TPN. Davonte Cardenas MD [facility]/SHYANNL /[id number]
[2019-11-14] MEDS: CHOLESTYRAMINE 4 GM PACKET PO SCH (17:43)
--- NOTE | 2019-11-14 19:00 | NUR ---
Report received from Latisha KIMBLE. Pt received AAOx3, resting on her right side. Pt reports she feels hot, temp taken at this time and it is 101.9 orally, Latisha KIMBLE is calling to notify him now. Addendum: 11/14/19 at 2049 by Arely Strong RN Latisha KIMBLE received an order for Tylenol from . I will administer it as soon as pharmacy updates. Refer to medication documentation for further information.
[2019-11-14] MEDS: ACETAMINOPHEN 325 MG TAB PO PRN (19:26)
--- NOTE | 2019-11-14 19:31 | Progress Note ---
DATE: SUBJECTIVE: Ms. Hernandez remains in intensive care unit, still shortness of breath, but feeling better. PHYSICAL EXAMINATION: GENERAL: Currently alert and oriented, in no distress. VITAL SIGNS: Stable, currently afebrile. HEENT: Nonicteric. NECK: Supple. CHEST: Clear. COR: S1 and S2. ABDOMEN: Soft. IMPRESSION: COVID-19, community-acquired pneumonia, Respiratory failure, clinically seems to be doing better, still gets hypoxemic . We will observe clinically. We will follow. MD PATRICE Gay/MODL /[id number]
--- NOTE | 2019-11-14 21:15 | NUR ---
Pt has large amount of stool leaking from sides of rectal tube. Pt cleaned and given bath at this time. Linens and gown changed. Rectal tube repositioned and balloon monitored at this time.
[2019-11-15] VITALS (22 sets, daily range): BP systolic 101–147; BP diastolic 55–131
[2019-11-15] MEDS: GUAIFENESIN/CODEINE 10 ML CUP PO PRN (00:28)
[2019-11-15] MEDS: DEXMEDETOMIDINE 200MCG/NS 50ML 50 ML IV PRN ×2 (00:28→10:52)
--- NOTE | 2019-11-15 00:28 | NUR ---
Pt reporting cramping in her left ribcage with coughing and increasing anxiety. Precedex started per prn order and cough medicine give per prn order.
[2019-11-15 05:42] LABS: BASOPHILS % 0.3 % (0.0-1.0); EOSINOPHILS # (AUTO) 0.1 (0.0-0.4); EOSINOPHILS % 1.6 % (0.0-6.0); HEMATOCRIT 32.3 % (34.2-44.1); HEMOGLOBIN 11.2 g/dL (12.0-16.0); LYMPHOCYTES # (AUTO) 1.2 (1.0-3.2); LYMPHOCYTES % 16.6 % (18.0-39.1); MEAN CORPUSCULAR HGB CONC 34.7 g/dL (31-35); MONOCYTES # (AUTO) 0.6 (0.2-0.8); MONOCYTES % 7.9 % (4.4-11.3); NEUTROPHILS # (AUTO) 5.3 (2.1-6.9); NEUTROPHILS % 72.8 % (38.7-80.0); PLATELET COUNT 335 x10e3/uL (140-360); RED CELL DISTRIBUTION WIDTH 12.4 % (11.7-14.4)
[2019-11-15 05:45] LABS: MEAN CORPUSCULAR VOLUME 92.3 fL (81-99)
--- NOTE | 2019-11-15 05:55 | Diagnostic Imaging Report ---
EXAMINATION: CHEST SINGLE (PORTABLE) COMPARISON: Chest x-ray 11/14/2019 INDICATION: ^resp failure ^[id number] ^[id number] DISCUSSION: Frontal view of the chest obtained at 0522 hours. HEART AND MEDIASTINUM: The cardiomediastinal silhouette is unremarkable. LINES: None. LUNGS/PLEURA: Multifocal pulmonary infiltrates are stable. Stable blunting of the left costophrenic angle. No pneumothorax. BONES AND SOFT TISSUES: No focal osseous lesion. The soft tissues are normal. IMPRESSION: No change in pulmonary infiltrates or small left pleural effusion. No new cardiopulmonary findings. Signed by: Dr. Kitty Ferris MD on 11/15/2019 5:52 AM
[2019-11-15 06:04] LABS: ALANINE AMINOTRANSFERASE 17 IU/L (0-55); ALBUMIN 2.5 g/dL (3.5-5.0); ALBUMIN/GLOBULIN RATIO 0.6 (0.8-2.0); ALKALINE PHOSPHATASE 57 IU/L (40-150); BLOOD UREA NITROGEN < 5 mg/dL (7-26); CALCIUM 8.7 mg/dL (8.4-10.2); CARBON DIOXIDE 25 mmol/L (22-29); CHLORIDE 104 mmol/L (98-107); CREATININE, SERUM 0.56 mg/dL (0.57-1.11); EST GLOMERULAR FILTRATION RATE > 60 ML/MIN (60-); GLUCOSE 109 mg/dL (74-118); SODIUM 139 mmol/L (136-145)
[2019-11-15 06:05] LABS: BUN/CREATININE RATIO 9 (6-25)
[2019-11-15] MEDS: AZITHROMYCIN 500MG/SOD CHL 0.9% 250ML BAG IV SCH (08:34)
[2019-11-15] MEDS: CHOLESTYRAMINE 4 GM PACKET PO SCH (08:34)
[2019-11-15] MEDS: ENOXAPARIN SOD INJ 40 MG/0.4 ML SYR SC SCH ×2 (08:34→20:27)
[2019-11-15] MEDS: ZINC SULFATE 50 MG CAP PO SCH ×2 (08:34→17:54)
[2019-11-15] MEDS: ASCORBIC ACID 500 MG TAB PO SCH ×2 (08:34→17:54)
[2019-11-15] MEDS: MONTELUKAST SODIUM 10 MG TAB PO SCH (08:34)
[2019-11-15] MEDS: CEFTRIAXONE SOD 1 GRAM/0.9% SOD CHL 50ML BAG IV SCH (08:34)
[2019-11-15] MEDS ORDERED: POTASSIUM CHLORIDE 20MEQ/100ML 200 ML IV ONE (09:30)
[2019-11-15 11:32] LABS: RBC MORPHOLOGY COMMENT NORMAL
[2019-11-15 11:33] LABS: PLATELET ESTIMATE ADEQUATE; PLATELET MORPHOLOGY COMMENT NORMAL
[2019-11-15] MEDS ORDERED: LORAZEPAM 0.5 MG TAB PO PRN (13:30)
--- NOTE | 2019-11-15 13:35 | Progress Note ---
DATE: SUBJECTIVE: Ms. Hernandez remains in intensive care unit. She is doing better. OBJECTIVE: GENERAL: She is currently alert, oriented, not in acute distress. VITAL SIGNS: Stable. T-max 101.9. HEENT: She is not icteric. NECK: Supple. CHEST: Clear. HEART: S1 and S2. ABDOMEN: Soft. Bowel sounds are present. No tenderness. EXTREMITIES: No edema. SKIN: No rash. ASSESSMENT AND PLAN: 1. Coronavirus disease - 19 on admission, acute respiratory failure, better; anemia. She still remains on Precedex. 2. The patient is not eating, recommend oral supplement. 3. She is currently on Rocephin, azithromycin, and Tylenol. Recommend to be up in a chair and to leave the ICU once okay with Pulmonary. We will follow. MD PATRICE Gay/GENEVA /[id number]
[2019-11-15] MEDS: RISPERIDONE 0.5 MG TAB PO PRN (14:07)
--- NOTE | 2019-11-15 15:40 | Progress Note ---
DATE: SUBJECTIVE: Oxygen has been decreased to 2 L. The patient still has some anxiety. She is still on low-dose Precedex. She was started on risperidone. She has decreased p.o. intake. PHYSICAL EXAMINATION: VITAL SIGNS: The patient is afebrile. The blood pressure is 118/64 and the saturation is 96% on 2 L. HEENT: Shows no facial swelling or erythema. CARDIAC: Reveals regular rate and rhythm with normal S1 and S2. LUNGS: Auscultation of lungs reveals crackles at the bases. There is no wheezing. ABDOMEN: Soft and nontender. There is no rebound or guarding. EXTREMITIES: Shows no leg edema or calf tenderness. There is no cyanosis or clubbing. SKIN: Shows no rashes. NEUROLOGICAL: Shows no focal abnormalities. LABORATORY DATA: White blood cell count is 7.3 and the hemoglobin 11.2. The platelet count is 335. The BUN to creatinine ratio is 5 to 0.56. The potassium is 3.0. Albumin is 2.5. RADIOGRAPHIC DATA: Chest x-ray shows bilateral pulmonary infiltrates. IMPRESSION: 1. Viral pneumonia and COVID-19 infection. 2. Asthma. 3. Anxiety. PLAN: 1. Increase risperidone and use Ativan p.r.n. 2. Wean Precedex. 3. Low-dose TPN. 4. Continue to wean oxygen. 5. Complete current antibiotics. Davonte Cardenas MD [facility]/SHYANNL /[id number]
--- NOTE | 2019-11-15 17:16 | NUR ---
Nutrition Intervention Note RD Recommendation(s) for Physician: -Recommend advancing diet when medically appropriate -Encourage PO intake and Ensure nutrition supplement BID -If enteral nutrition is not feasible, recommend to continue standard TPN and increase goal rate to 60 mL/hr with 25 gm/day lipids (216 g dextrose/30% 500 mL dextrose, 72 g amino acids/10% 500 mL amino acids, and 25 gm/day lipids, total volume 1400 mL) - provides 1247 kcal and 72 g protein Plan of Care: RD following, monitoring for tolerance and adequacy Nutrition reason for involvement: Nutrition Risk Trigger MST 3 and initiation of TPN RD Assessment (11/15/19) Pt is a 54 year old female admitted with acute respiratory distress and pneumonia. Pt is COVID-19+; therefore, unable to enter room due to droplet precautions. Attempted to call pt over the phone, but she did not answer. Pt was previously on a Venturi mask and is currently on nasal cannula. RN stated pt has not been able to eat or drink anything. Unable to obtain weight history at this time. Per chart, low dose TPN was started today. Will continue to monitor. Principal Problems/Diagnoses: acute respiratory distress and pneumonia, COVID-19+ PMH: asthma, appendectomy GI: non-tender, round, distended abdomen, loose stools Skin: intact Labs: (11/14) Na 139, K 3.0, BUN < 5, Cr 0.56 Meds: losartan, Vitamin C, zinc sulfate, zofran, dialudid Ht: 59 inches Wt: 146 lbs BMI: 29.5 kg/m2 IBW: 98 lbs Malnutrition Evaluation (11/15/19) Unable to assess. Will re-evaluate at follow-up as appropriate. Nutrition Prescription (Diet Order): Full Liquids, Standard TPN @ 42 mL/hr with 25 gm/day lipids (provides 941 kcal, 50 g protein) Estimated Nutritional Needs: 0217-7240 calories/day (18-20 kcal/kg CBW) 66-100 g protein/day (1-1.5 g pro/kg CBW) Diet Adequacy: Not meeting calorie needs, Not meeting protein needs Tolerance: Pt is not eating or drinking anything per RN Diet Education Needs Assessment: Diet education not indicated Nutrition Care Level: moderate Nutrition Diagnosis: Inadequate energy intake related to medical status as evidenced by need for alternative means of nutrition Goal: Patient will meet 75-100% of estimated needs by follow up Progress: N/A Interventions: -General healthful diet, Commercial beverage, Composition, Rate, Route, Recommended Modifications, Collaboration with other providers Monitoring/Evaluation: -Total energy intake, Total protein intake, Formula/Solution, Liquid supplement, Weight change Signed: Lisa Sánchez RD, LD
[2019-11-15] MEDS: GABAPENTIN 100 MG CAP PO SCH (17:54)
[2019-11-15] MEDS ORDERED: LOPERAMIDE HCL 2 MG CAP PO ONE (18:15)
--- NOTE | 2019-11-15 18:48 | NUR ---
Pt weaned from 4L NC to Room air during shift. Precedex d/c by dr. Sofya Cardenas. Pt having loose stools. Flexiseal leaking and was removed, pt refusing at this time to have rectal tube replaced. Dr. Real gave orders for one time dose of imodium and transfer orders for medical surgical floor with telemetry and pulse ox monitoring.
[2019-11-15] MEDS ORDERED: CENTRAL TPN FORMULA 1 BAG IV SCH (20:00)
--- NOTE | 2019-11-15 21:00 | NUR ---
received patient from icu
--- NOTE | 2019-11-15 21:30 | NUR ---
Vital signs checked BP 146/90 mmhg, [place] 112 b/min, RR 18, o2 sat 95%. Temp 101.5 F
[2019-11-15] MEDS: ACETAMINOPHEN 325 MG TAB PO PRN (21:53)
[2019-11-16] VITALS (8 sets, daily range): BP systolic 115–126; BP diastolic 70–85
--- NOTE | 2019-11-16 01:37 | NUR ---
PATIENT 02 SATURATION DROPS TO 86% RA. OXYGEN STARTED AT 4L/MIN VIA NASAL CANNULA.
--- NOTE | 2019-11-16 01:39 | NUR ---
OXYGEN SATURATION AT 100% NO C/O SHORTNESS OF BREATH.
[2019-11-16] MEDS: BENZONATATE 100 MG CAP PO PRN ×2 (04:09→14:28)
[2019-11-16] MEDS: ACETAMINOPHEN 325 MG TAB PO PRN (04:09)
--- NOTE | 2019-11-16 06:07 | NUR ---
PATIENT RUNS 11 V TACH. ALERT AND ORIENTED. NO COMPLAIN OF CHEST PAIN. DR. COOK MADE AWARE. NO NEW ORDERS AT THIS TIME. CONTINUE TO CLOSELY MONITOR PATIENT.
--- NOTE | 2019-11-16 07:00 | NUR ---
Received shift report from the off-going night nurse. Patient in stable condition, No s/s of distress noted. No pain voiced. TPN infusing into PICC at right upper arm. PICC site asymptomatic and patient. Transparent dressing C/D/I. Telemetry applied. Li draining yellow urine into the drainage bag. Bed in lowest position and locked. Call light within reach.
[2019-11-16] MEDS ORDERED: SODIUM CHLORIDE 0.9% 250ML 250 ML ONE (08:03)
[2019-11-16] MEDS: CEFTRIAXONE SOD 1 GRAM/0.9% SOD CHL 50ML BAG IV SCH (08:20)
[2019-11-16] MEDS: ZINC SULFATE 50 MG CAP PO SCH ×2 (08:21→15:45)
[2019-11-16] MEDS: GABAPENTIN 100 MG CAP PO SCH ×2 (08:21→15:45)
[2019-11-16] MEDS: ENOXAPARIN SOD INJ 40 MG/0.4 ML SYR SC SCH (08:21)
[2019-11-16] MEDS: MONTELUKAST SODIUM 10 MG TAB PO SCH (08:21)
[2019-11-16] MEDS: ASCORBIC ACID 500 MG TAB PO SCH ×2 (08:21→15:45)
[2019-11-16] MEDS: AZITHROMYCIN 500MG/SOD CHL 0.9% 250ML BAG IV SCH (09:20)
--- NOTE | 2019-11-16 09:38 | Progress Note ---
DATE: SUBJECTIVE: The patient was transferred out of the Intensive Care Unit last night. She feels better. She has less dyspnea and less anxiety. PHYSICAL EXAMINATION: VITAL SIGNS: Stable. She is saturating 99% on 3 L. HEENT: Shows no facial swelling or erythema. CARDIAC: Reveals regular rate and rhythm with normal S1 and S2. LUNGS: Auscultation of lungs reveals crackles at the bases. There is no wheezing. ABDOMEN: Soft and nontender. There is no rebound or guarding. EXTREMITIES: There is no leg edema or calf tenderness. There is no cyanosis clubbing. SKIN: Shows no rashes. IMPRESSION: 1. COVID-19 infection and viral pneumonia. 2. Asthma. 3. Anxiety. PLAN: 1. Wean oxygen as tolerated. 2. Decrease TPN to 20 mL an hour and taper. 3. Out of bed as tolerated. 4. Physical Therapy. MD ILIR Mari/GENEVA /[id number]
[2019-11-16 11:16] LABS: POTASSIUM 3.1 mmol/L (3.5-5.1)
--- NOTE | 2019-11-16 11:43 | NUR ---
Li discontinued @ 1140- patient tolerated removal. Educated patient on letting PCT or nurse know about voiding.
[2019-11-16] MEDS ORDERED: POTASSIUM CHLORIDE 20 MEQ TAB CR PO SCH (15:00)
[2019-11-16] MEDS ORDERED: ACETAMINOPHEN/CODEINE 300MG - 30MG TAB PO NR (15:15)
--- NOTE | 2019-11-16 15:28 | NUR ---
Dr. Cardenas, I visited with nurse, Belkis KIMBLE. She said the patient had been up with just a little assist several times today to use bedside commode as ran had come out. Belkis has not seen the unsteadiness night nursing reported. She suspects it was just from being in bed for an extended period of time. Discussed with RN to encourage out of bed for patient and walking in room and discussed a few simple exercises (sit to stands, bridging) patient could do. Offered to get RN a walker but she wasn't sure she needed it. Patient at this time complaining of pain from coughing and RN about to go into room and give her pain meds but will get her out of bed to a chair in an hour or an hour and a half. Do not think this patient needs PT at this time as she is easily able to get up with nursing. Addendum: 11/16/19 at 1530 by Katerine Teixeira PT Amended: Links added.
--- NOTE | 2019-11-16 15:30 | NUR ---
Patient ambulating in room with Walker to the bathroom. Patient sat up at the bedside for 30 minutes. Educated patient on exercises to do such as sit to stand and getting up more often.
[2019-11-16] MEDS: DIPHENOXYLATE/ATROPINE TAB PO PRN ×2 (15:36→20:15)
[2019-11-16] MEDS: ONDANSETRON HCL INJ 2MG/ML 2ML 2 MG/ML VIAL IV PRN (15:45)
[2019-11-16] MEDS ORDERED: POTASSIUM CHLORIDE 20 MEQ TAB CR PO ONE (16:45)
--- NOTE | 2019-11-16 17:46 | NUR ---
PROGRESS NOTES [id number]
--- NOTE | 2019-11-16 18:16 | NUR ---
Patient stated that she voided 4 times since removing the Li.
--- NOTE | 2019-11-16 18:56 | Progress Note ---
DATE: SUBJECTIVE: The patient is doing better. Remains in the hospital. She is weak, but no new complaints. The patient was in ICU, but transferred last night. She still has some cough. She still has some shortness of breath, less anxious. REVIEW OF SYSTEMS: Otherwise unremarkable. PHYSICAL EXAMINATION: GENERAL: She is alert, oriented, does not seem to be in acute distress. VITAL SIGNS: Stable, currently afebrile. HEENT: She is not icteric. NECK: Supple. CHEST: Crackles bilateral. HEART: S1, S2. No S3, S4, or murmur. ABDOMEN: Soft. Bowel sounds present. No tenderness. EXTREMITIES: No edema. SKIN: No rash. IMPRESSION: 1. COVID-19 pneumonia, clinically seems to be better. Her shortness of breath is improving. 2. Not eating, she is on TPN. 3. Superimposed community-acquired pneumonia, we will discontinue azithromycin and Rocephin. 4. Diarrhea x1, it could be due to antibiotic and I think discontinuing the antibiotic will help in that regard. I would recommend to wean down the TPN and encourage p.o. intake. 5. Cough, pneumonia, reactive airway disease, probably continue with albuterol. 6. We will continue with zinc supplement and vitamin C supplement and oxygen as needed. Continue with droplet isolation. Slowly encouraging the patient to leave the bed to continue to monitor her O2 saturation. MD PATRICE Gay/GENEVA /[id number]
--- NOTE | 2019-11-16 18:57 | NUR ---
Completed report with the oncoming night nurse. Patient in stable condition, no s/s of distress noted. Telemetry applied. Bed in lowest position and locked. Call light within reach.
[2019-11-16] MEDS ORDERED: CENTRAL TPN FORMULA 1 BAG IV SCH (20:00)
[2019-11-16] MEDS: ACETAMINOPHEN/CODEINE 300MG - 30MG TAB PO PRN (20:15)
--- NOTE | 2019-11-16 20:35 | NUR ---
Patient refused bed alarm on and refused help going to bedside commode. Patient said she can go to bedside commode several times at night by herself
[2019-11-17] VITALS (8 sets, daily range): BP systolic 102–116; BP diastolic 68–83
--- NOTE | 2019-11-17 05:09 | NUR ---
Patient states she don't need cough medication at this time.
--- NOTE | 2019-11-17 05:13 | NUR ---
blood sugar checked and revealed 110 mg/dl.
--- NOTE | 2019-11-17 07:00 | NUR ---
Received patient lying in bed with eyes open. O2 @ 2L via NC. Respiration even and unlabored without SOB. VS stable. Denies pain. Call light in reach.
[2019-11-17] MEDS: MONTELUKAST SODIUM 10 MG TAB PO SCH (07:52)
[2019-11-17] MEDS: ZINC SULFATE 50 MG CAP PO SCH ×2 (07:52→15:37)
[2019-11-17] MEDS: GABAPENTIN 100 MG CAP PO SCH ×2 (07:52→15:37)
[2019-11-17] MEDS: ASCORBIC ACID 500 MG TAB PO SCH ×2 (07:52→15:37)
[2019-11-17] MEDS: BENZONATATE 100 MG CAP PO PRN (09:23)
[2019-11-17 09:29] LABS: ANION GAP 13.6 mmol/L (8-16); BLOOD UREA NITROGEN < 5 mg/dL (7-26); CARBON DIOXIDE 23 mmol/L (22-29); CHLORIDE 102 mmol/L (98-107); CREATININE, SERUM 0.67 mg/dL (0.57-1.11); EST GLOMERULAR FILTRATION RATE > 60 ML/MIN (60-); POTASSIUM 4.6 mmol/L (3.5-5.1); SODIUM 134 mmol/L (136-145)
[2019-11-17 09:50] LABS: BUN/CREATININE RATIO 7 (6-25)
[2019-11-17 09:52] LABS: GLUCOSE 484 mg/dL (74-118)
--- NOTE | 2019-11-17 12:19 | NUR ---
progress [id number]
--- NOTE | 2019-11-17 14:20 | Progress Note ---
DATE: SUBJECTIVE: Her breathing is little bit better. She is still coughing, but now her diarrhea is a problem and she cannot keep food and she has had a little bit nausea. She still does not have good appetite and she is still weak. No new symptoms otherwise. PHYSICAL EXAMINATION: VITAL SIGNS: Her temperature is afebrile. Vitals stable. HEENT: She is not icteric. NECK: Supple. CHEST: Clear. COR: S1 and S2. No S3, S4, or murmurs. ABDOMEN: Soft. Bowel sounds present. No tenderness. No hepatosplenomegaly. EXTREMITIES: No edema. SKIN: No rash. IMPRESSION: 1. Diarrhea. We started on antibiotic yesterday. We are dealing with Clostridium difficile. We will add Questran one pack p.o. b.i.d. and vancomycin 250 p.o. t.i.d. 2 hours apart. Continue to push p.o. fluid. Debility could be due from the infection when she first came as well as also the diarrhea and dehydration. 2. COVID-19, present on admission. The diarrhea could be due from also the gastroenteritis. Continue with supportive care. Reassess in the morning. We will follow. MD PATRICE Gay/GENEVA /[id number]
--- NOTE | 2019-11-17 15:14 | Progress Note ---
DATE: SUBJECTIVE: The patient still has some dyspnea on exertion, but is otherwise saturating well. She had some diarrhea. She has no fevers. PHYSICAL EXAMINATION: VITAL SIGNS: The blood pressure is 110/80 and saturation is 97%. Pulse 95. HEENT: Shows no facial swelling or erythema. CARDIAC: Reveals regular rate and rhythm with normal S1 and S2. LUNGS: Auscultation of lungs reveals crackles at the bases. There is no wheezing. ABDOMEN: Soft and nontender. There is no rebound or guarding. EXTREMITIES: Shows no leg edema or calf tenderness. IMPRESSION: 1. Viral pneumonia and COVID-19 infection. 2. Asthma. 3. Anxiety. PLAN: 1. Continue to wean oxygen. 2. P.o. intake. 3. Continue medications for anxiety. 4. Repeat blood work tomorrow. Davonte Cardenas MD [facility]/SHYANNL /[id number]
[2019-11-17] MEDS: VANCOMYCIN 250MG/5ML ORAL SOLN PO SCH ×2 (15:31→23:30)
[2019-11-17] MEDS: ENOXAPARIN SOD INJ 40 MG/0.4 ML SYR SC SCH (15:37)
[2019-11-17] MEDS: CHOLESTYRAMINE 4 GM PACKET PO SCH (16:05)
--- NOTE | 2019-11-17 19:45 | NUR ---
Pt alert and oriented to name, sitting up in bed, denies pain at this time. O2 @4L via NC. TPN running @10ml/hr right PICC. Call light within reach Bed low and locked.
[2019-11-17] MEDS ORDERED: CENTRAL TPN FORMULA 1 BAG IV SCH (20:00)
[2019-11-17] MEDS: ACETAMINOPHEN/CODEINE 300MG - 30MG TAB PO PRN (20:32)
--- NOTE | 2019-11-17 21:15 | NUR ---
Report given to night nurse. Pt stable, No acute distress noted.
[2019-11-18] VITALS (8 sets, daily range): BP systolic 102–122; BP diastolic 60–78
[2019-11-18] MEDS: BENZONATATE 100 MG CAP PO PRN ×3 (02:16→22:20)
[2019-11-18 05:11] LABS: BASOPHILS % 0.4 % (0.0-1.0); EOSINOPHILS # (AUTO) 0.2 (0.0-0.4); EOSINOPHILS % 2.8 % (0.0-6.0); HEMATOCRIT 35.3 % (34.2-44.1); HEMOGLOBIN 11.7 g/dL (12.0-16.0); LYMPHOCYTES # (AUTO) 1.7 (1.0-3.2); LYMPHOCYTES % 22.8 % (18.0-39.1); MEAN CORPUSCULAR HEMOGLOBIN 29.6 pg (28-32); MEAN CORPUSCULAR HGB CONC 33.1 g/dL (31-35); MEAN CORPUSCULAR VOLUME 89.4 fL (81-99); MONOCYTES # (AUTO) 0.7 (0.2-0.8); MONOCYTES % 9.9 % (4.4-11.3); NEUTROPHILS # (AUTO) 4.7 (2.1-6.9); NEUTROPHILS % 62.9 % (38.7-80.0); PLATELET COUNT 365 x10e3/uL (140-360); RED BLOOD COUNT 3.95 x10e6/uL (3.6-5.1); RED CELL DISTRIBUTION WIDTH 12.5 % (11.7-14.4)
[2019-11-18 05:27] LABS: ALANINE AMINOTRANSFERASE 22 IU/L (0-55); ALBUMIN 2.6 g/dL (3.5-5.0); ALBUMIN/GLOBULIN RATIO 0.7 (0.8-2.0); ALKALINE PHOSPHATASE 78 IU/L (40-150); ANION GAP 11.5 mmol/L (8-16); BLOOD UREA NITROGEN < 5 mg/dL (7-26); CALCIUM 8.9 mg/dL (8.4-10.2); CARBON DIOXIDE 27 mmol/L (22-29); CHLORIDE 102 mmol/L (98-107); CREATININE, SERUM 0.52 mg/dL (0.57-1.11); EST GLOMERULAR FILTRATION RATE > 60 ML/MIN (60-); GLUCOSE 96 mg/dL (74-118); POTASSIUM 3.5 mmol/L (3.5-5.1); SODIUM 137 mmol/L (136-145)
[2019-11-18 05:42] LABS: BUN/CREATININE RATIO 10 (6-25)
[2019-11-18] MEDS: DIPHENOXYLATE/ATROPINE TAB PO PRN ×2 (05:54→13:45)
[2019-11-18] MEDS: VANCOMYCIN 250MG/5ML ORAL SOLN PO SCH ×3 (05:54→22:00)
[2019-11-18] MEDS: ASCORBIC ACID 500 MG TAB PO SCH ×2 (08:32→16:53)
[2019-11-18] MEDS: GABAPENTIN 100 MG CAP PO SCH ×2 (08:32→16:52)
[2019-11-18] MEDS: ZINC SULFATE 50 MG CAP PO SCH ×2 (08:32→16:53)
[2019-11-18] MEDS: MONTELUKAST SODIUM 10 MG TAB PO SCH (08:32)
[2019-11-18] MEDS: CHOLESTYRAMINE 4 GM PACKET PO SCH ×2 (08:40→16:53)
--- NOTE | 2019-11-18 12:03 | Progress Note ---
DATE: SUBJECTIVE: The patient is feeling better. She had a little bit of diarrhea yesterday. She is off oxygen. She has no fever. OBJECTIVE: VITAL SIGNS: The blood pressure is 115/72, saturation is 96%. HEENT: Shows no facial swelling or erythema. CARDIAC: Reveals regular rate and rhythm with normal S1 and S2. LUNGS: Auscultation of lungs reveals clear breath sounds bilaterally. There is no wheezing. ABDOMEN: Soft, nontender. There is no rebound or guarding. EXTREMITIES: There is no leg edema or calf tenderness. LABORATORY DATA: BUN to creatinine ratio is 5 to 0.52. The potassium is 3.5. Albumin is 2.6. White blood cell count is 7.5 and hemoglobin is 11.7. The platelet count is 365,000. ASSESSMENT: 1. Coronavirus disease - 19 infection. 2. Viral pneumonia. 3. Diarrhea. PLAN: 1. Continue Tylenol. 2. Ambulate as tolerated. 3. Wean oxygen. 4. P.o. fluid intake. Davonte Cardenas MD [facility] /[id number]
[2019-11-18] MEDS: ONDANSETRON HCL INJ 2MG/ML 2ML 2 MG/ML VIAL IV PRN (12:15)
--- NOTE | 2019-11-18 15:14 | NUR ---
Nutrition Intervention Note RD Recommendation(s) for Physician: -Recommend advancing diet when medically appropriate -Encourage PO intake and Ensure clear nutrition supplement with meals The patient meets criteria for unspecified SEVERE protein-calorie malnutrition Plan of Care: RD following, monitoring for tolerance and adequacy Nutrition reason for involvement: follow up RD Assessment (11/18/19) Follow up. Pt was transferred from the ICU to the [facility] isolation unit. RN stated pt is no longer receiving TPN. Called pt over the phone due to droplet isolation precautions. Pt stated she has been eating <50% of her meals for the past month. Pt was unsure of any weight changes and stated she weighed 167 lbs 2 months ago. Pt currently has a weight of 146 lbs in chart. If accurate, this would be a 12% weight loss in ~3 months which is considered significant weight loss. Pt reports some nausea and diarrhea. Pt has Ensure clear ordered for added nutrition. Will continue to monitor. (11/15/19) Pt is a 54 year old female admitted with acute respiratory distress and pneumonia. Pt is COVID-19+; therefore, unable to enter room due to droplet precautions. Attempted to call pt over the phone, but she did not answer. Pt was previously on a Venturi mask and is currently on nasal cannula. RN stated pt has not been able to eat or drink anything. Unable to obtain weight history at this time. Per chart, low dose TPN was started today. Will continue to monitor. Principal Problems/Diagnoses: acute respiratory distress and pneumonia, COVID-19 PMH: asthma, appendectomy GI: soft, non-tender abdomen, last recorded BM 11/16 x8 Skin: intact Labs: (11/17) Na 137, K 3.5, BUN <5, Cr 0.52, Glu 96 (11/14) Na 139, K 3.0, BUN < 5, Cr 0.56 Meds: zofran, vitamin C, zinc sulfate, vancomycin, lovenox, cholestyramine, dilaudid Ht: 59 inches Wt: 146 lbs BMI: 29.5 kg/m2 IBW: 98 lbs Malnutrition Evaluation (11/18/19) The patient meets criteria for unspecified SEVERE protein-calorie malnutrition. Energy intake: <75% of estimated energy requirements for 1 month Weight loss: >7.5% ~ 3 months (Acute) Fat loss: unable to evaluate Muscle loss: unable to evaluate Supporting Evidence: Fluid accumulation: no edema per MD note Functional Status: unable to evaluate Nutrition Prescription (Diet Order): Full Liquids Estimated Nutritional Needs: 3296-2256 calories/day (18-20 kcal/kg CBW) 66-100 g protein/day (1-1.5 g pro/kg CBW) Diet Adequacy: Not meeting calorie needs, Not meeting protein needs Tolerance: Pt reports nausea Diet Education Needs Assessment: Diet education not indicated Nutrition Care Level: moderate Nutrition Diagnosis: Severe malnutrition related to medical status as evidenced by pt meeting <75% of estimated energy needs for 1 month and >7.5% weight loss ~ 3 months. Goal: Patient will meet 75-100% of estimated needs by follow up Progress: not progressing Interventions: -General healthful diet, Commercial beverage, Collaboration with other providers Monitoring/Evaluation: -Total energy intake, Total protein intake, Liquid supplement, Weight change Signed: Lisa Sánchez RD, LD
--- NOTE | 2019-11-18 16:28 | NUR ---
PROGRESS NOTE PATIENT IS DOING BETTER PHYSICAL EXAMINATION: VITAL SIGNS: Her temperature is afebrile. Vitals stable. HEENT: She is not icteric. NECK: Supple. CHEST: Clear. COR: S1 and S2. No S3, S4, or murmurs. ABDOMEN: Soft. Bowel sounds present. No tenderness. No hepatosplenomegaly. EXTREMITIES: No edema. SKIN: No rash. IMPRESSION: [id number]
[2019-11-18] MEDS: LACTOBACILLUS ACIDOPHILUS CAPSULE PO SCH (16:53)
[2019-11-18] MEDS: ENOXAPARIN SOD INJ 40 MG/0.4 ML SYR SC SCH (16:53)
--- NOTE | 2019-11-18 18:05 | Progress Note ---
DATE: SUBJECTIVE: Ms. Hernandez is feeling better. She is still weak. Her appetite is slightly better. There is no shortness of breath. She is overall better since she came here. REVIEW OF SYSTEMS: Otherwise unremarkable. PHYSICAL EXAMINATION: GENERAL: Currently alert, oriented, does not seem in acute distress. VITAL SIGNS: Stable, afebrile. HEENT: She is not icteric. NECK: Supple. CHEST: Clear. ABDOMEN: Soft. EXTREMITIES: No edema. SKIN: No rash. LABORATORY DATA: Her BUN is 5. Her potassium 3.5, albumin is 2.6. IMPRESSION: 1. COVID-19 pneumonia present on admission, gastroenteritis COVID-19. Diarrhea could be from COVID-19 versus other. 2. Malnutrition, overall improving. 3. The patient can be discharged home with supportive care, multivitamin, maybe zinc supplement, and vitamin C. MD PATRICE Gay/GENEVA /[id number]
--- NOTE | 2019-11-18 19:10 | NUR ---
Nursing report received from morning nurse. Pt no acute distress.
--- NOTE | 2019-11-18 20:51 | Progress Note ---
DATE: 11/18/2019 CONSULTANTS: 1. Dr. Davonte Cardenas with call center support representative. 2. Dr. Moreno with Infectious Disease. CHIEF COMPLAINT: Cough and diarrhea. SUBJECTIVE: The patient is seen sitting up in a chair, she reports having frequent diarrhea. She denies any abdominal pain, chest pain, shortness of breath, fever, chills. She, however, reports overall improvement of her symptoms. PHYSICAL EXAMINATION: VITAL SIGNS: Temperature 98.6, pulse is 91, respirations 20, blood pressure 115/72, pulse ox is 96% on room air. GENERAL: No acute distress. HEENT: Normocephalic, atraumatic. NECK: Supple. CARDIOVASCULAR: Regular rate and rhythm. LUNGS: Decreased breath sounds. ABDOMEN: Soft and nontender. NEURO: Alert, awake, and oriented x3. MUSCULOSKELETAL: Moves all extremities. SKIN: Dry and intact. LABORATORY DATA: WBC 7.5, hemoglobin 11.7, hematocrit 35.3, platelets 365. Sodium 137, potassium 3.5, CO2 27, BUN is less than 5, creatinine 0.52. IMPRESSION AND PLAN: 1. Acute respiratory distress due to COVID-19 pneumonia. Chest x-ray noted, she reports improving shortness of breath and cough. Continue vancomycin. 2. Gastroenteritis due to likely COVID-19. The patient refused Questran. We will treat with Lomotil p.r.n. Probiotics also added. 3. Deep vein thrombosis prophylaxis. Lovenox daily. 4. Plan is to continue current treatment, if diarrhea improved may discharge home tomorrow. Dictated by RAKESH Kamara Nirali Real MD MY/MODL /[id number] The patient was seen and examined on 11/18/19. Agree with the findings and plan as documented by RAKESH Orellana. SAMIAD
[2019-11-18] MEDS: ACETAMINOPHEN/CODEINE 300MG - 30MG TAB PO PRN (22:20)
--- NOTE | 2019-11-18 22:50 | NUR ---
Pt c/o unproductive elimination of sputum. Spoke with dr. Joanna Cardenas, ordered Mucinex BID x1 dose now.
[2019-11-18] MEDS: GUAIFENESIN 600 MG TAB PO SCH (23:30)
[2019-11-19] VITALS: BP 94/56
[2019-11-19 04:00] VITALS: BP 94/65
[2019-11-19] MEDS: VANCOMYCIN 250MG/5ML ORAL SOLN PO SCH ×2 (05:56→13:44)
[2019-11-19 08:06] VITALS: BP 106/64
[2019-11-19] MEDS: ZINC SULFATE 50 MG CAP PO SCH (08:11)
[2019-11-19] MEDS: GUAIFENESIN 600 MG TAB PO SCH (08:11)
[2019-11-19] MEDS: MONTELUKAST SODIUM 10 MG TAB PO SCH (08:11)
[2019-11-19] MEDS: ASCORBIC ACID 500 MG TAB PO SCH (08:11)
[2019-11-19] MEDS: GABAPENTIN 100 MG CAP PO SCH (08:11)
[2019-11-19] MEDS: LACTOBACILLUS ACIDOPHILUS CAPSULE PO SCH (08:11)
[2019-11-19] MEDS: BENZONATATE 100 MG CAP PO PRN (08:12)
[2019-11-19 08:49] VITALS: BP 106/64
[2019-11-19] MEDS: CHOLESTYRAMINE 4 GM PACKET PO SCH (09:33)
--- NOTE | 2019-11-19 09:57 | Progress Note ---
DATE: SUBJECTIVE: The patient is afebrile. She is having no diarrhea. Overall, she feels improved. PHYSICAL EXAMINATION: VITAL SIGNS: The blood pressure is 106/64 and saturation is 99%. Pulse is 96. HEENT: Shows no facial swelling or erythema. CARDIAC: Reveals regular rate and rhythm with normal S1 and S2. LUNGS: Auscultation of lungs reveals decreased breath sounds at the bases. There is no wheezing. ABDOMEN: Soft and nontender. There is no rebound or guarding. EXTREMITIES: Shows no leg edema or calf tenderness. There is no cyanosis or clubbing. SKIN: Shows no rashes. IMPRESSION: 1. Viral pneumonia. 2. COVID-19. 3. Gastroenteritis. PLAN: 1. The patient will be discharged home today. 2. Home oxygen if needed. 3. Continue p.o. fluids and Tylenol at home. 4. Follow up in 1 to 2 weeks to ensure recovery and obtain visa for work. 5. The patient should remain in self-quarantine until she is symptom-free and cleared by physician. Davonte Cardenas MD [facility]/[place] /[id number]
[2019-11-19 11:54] VITALS: BP 106/69
[2019-11-19] MEDS: DIPHENOXYLATE/ATROPINE TAB PO PRN (12:20)
[2019-11-19] MEDS ORDERED: Zinc Sulfate PO (14:41)
--- NOTE | 2019-11-19 15:28 | Progress Note ---
DATE: SUBJECTIVE: Ms. Hernandez is feeling better. Her diarrhea is improving. Her weakness is improving. Overall, she is feeling good. REVIEW OF SYSTEMS: Except the weakness, she denies any. PHYSICAL EXAMINATION: GENERAL: She is currently alert, oriented, does not seem to be in acute distress. VITAL SIGNS: Stable, currently afebrile. HEENT: Normocephalic. Not icteric. NECK: Supple. No JVD. No lymphadenopathy. No thyromegaly. CHEST: Clear bilateral. HEART: S1, S2. No S3, S4, or murmur. ABDOMEN: Soft. Bowel sounds present. No tenderness. EXTREMITIES: No edema. IMPRESSION: coronavirus disease-19 pneumonia on admission. Gastroenteritis, probably due to coronavirus disease-19, overall better. The patient received adequate treatment. Community-acquired pneumonia also treated. This is day #8 of her hospitalization. The patient can be discharged home. Follow up with me in 3 weeks. We will check her PCR then. In the meantime, continue with home quarantine until I see her and release her. MD PATRICE Gay/[place] /[id number]
[2019-11-19 16:34] VITALS: BP 109/83
--- NOTE | 2019-11-19 17:50 | NUR ---
Pt discharged home at this time. Pt aox3 and 0 s/s of acute distress noted at time of discharge. PICC line was discontinued per physician orders prior to discharge. Lumen intact and 36cm in length. No bleeding at insertion site and pressure dressing was applied to area. Pt was discharged with one prescription and pt verbalized understanding of medication. Pt is verbalized understanding of all discharge instructions and follow up appointments.
--- NOTE | 2019-11-19 23:51 | Discharge Summary ---
PRIMARY CARE PHYSICIAN: Dr. Diaz at [facility]. FINAL DISCHARGE DIAGNOSES: 1. Acute respiratory distress due to coronavirus disease 2019 pneumonia. 2. Gastroenteritis, likely due to coronavirus disease 2019. 3. Debility. CONSULTANTS: 1. Dr. Cardenas with crowning hammer operator/Pulmonary. 2. Dr. Moreno with Infectious Disease. PROCEDURES: None. HISTORY: Per HPI. HOSPITAL COURSE: This is a pleasant 54-year-old female, who presented to the ER with complaints of cough, shortness of breath, and diarrhea. She was noted to have COVID-19. She was started on antibiotics, Rocephin, albuterol for shortness of breath, and azithromycin per ID. She continued to have diarrhea, so was started on p.o. vancomycin. She continued to improve. Today, her shortness of breath, cough, and diarrhea have much improved. She feels better and is cleared from all consultants for discharge. She is afebrile, vital signs stable, was discharged home on vitamin C, zinc sulfate, to follow up with should be in 2 to 3 weeks for repeat COVID-19 test. PHYSICAL EXAMINATION: VITAL SIGNS: Temperature 98.1, pulse is 92, respirations 20, blood pressure 106/69, pulse ox is 92% on room air. GENERAL: Fatigue. HEENT: Normocephalic, atraumatic. CARDIOVASCULAR: Regular rate and rhythm. LUNGS: With decreased breath sounds. ABDOMEN: Soft and nontender. NEUROLOGIC: Alert, awake, and oriented x3. MUSCULOSKELETAL: Moves all extremities. CONDITION AT DISCHARGE: Improved and stable. DISCHARGE MEDICATIONS: Please see medication reconciliation list. FOLLOWUP: Follow up with Dr. Moreno and Dr. Diaz at [facility] in 2 to 3 weeks. She was advised on self quarantine. All discharge instructions given and verbalizes understanding. TIME SPENT: Total discharge time is 33 minutes. Dictated by RAKESH Kamara Oksanaching Blayne Real MD MY/MODL /[id number] cc: Maritza Diaz MD [facility]
== END 2019-11-19 17:54 | disposition home or self-care (01) | DRG 871 ==
LOC: ER 15:29 → ERHOLD 15:45 → ICU 11-12 14:31 → IMCU 11-15 21:00
PROVIDERS: ADMIT Internal Medicine; ATTEND Internal Medicine
PROC: 02HV33Z Insertion of Infusion Device into Superior Vena Cava, Percutaneous Approach (ICD-10-PCS; 2019-11-11)
PROC: 30243K1 Transfusion of Nonautologous Frozen Plasma into Central Vein, Percutaneous Approach (ICD-10-PCS; principal; 2019-11-12)
DX: A41.9 Sepsis, unspecified organism (principal); U07.1 COVID-19; J12.89 Other viral pneumonia; J96.01 Acute respiratory failure with hypoxia; A04.72 Enterocolitis due to Clostridium difficile, not specified as recurrent; E87.2 Acidosis; E87.6 Hypokalemia; J45.909 Unspecified asthma, uncomplicated; R19.7 Diarrhea, unspecified; Z87.891 Personal history of nicotine dependence; E88.09 Other disorders of plasma-protein metabolism, not elsewhere classified; F41.9 Anxiety disorder, unspecified
CPT/HCPCS: 36415; 36569; 36600; 51700; 71045; 80048; 80053; 80329; 81001; 82550; 82553; 82948; 83605; 83735; 83880; 83930; 84132; 84145; 84443; 84484; 85025; 85610; 85730; 86850; 86900; 87040; 87086; 87635; 93005; 97139; 99251; 99285; J0456; J0696; J1170; J1650; J1956; J2270; J2405; J3480; J7030; J7050; P9017